=== PATIENT | female | born 1960 | race Caucasian/White ===

== ENCOUNTER 2024-04-14 17:24 | Emergency (ER) | payer OTHER ==
[2024-04-14] MEDS: Sodium Chloride 0.9% 1,000 ML IV SCH (20:16)
[2024-04-14] MEDS: Ondansetron 4 MG/2 ML SDV IVPUSH ONE (20:17)
[2024-04-14 20:23] LABS: HEMOGLOBIN 13.6 g/dL (11.2-15.5)
[2024-04-14 20:31] LABS: PLATELET COUNT,PLT 187 K/uL (130-375)
[2024-04-14 20:32] LABS: CALCIUM 9.3 mg/dL (8.5-10.1); CREATININE 0.9 mg/dL (0.6-1.0); EST CRCL DRUG DOSING (CG) 63.7 mL/min; POTASSIUM,K 4.1 mmol/L (3.6-5.2)
[2024-04-14 20:33] LABS: BAND ABSOLUTE MAN 0.21 K/uL; BAND PERCENT MAN 1 % (5-11); EOSINOPHILS ABSOLUTE MAN 0.21 K/uL (0.00-0.40); EOSINOPHILS PERCENT MAN 1 % (2-4); LYMPHOCYTES ABSOLUTE MAN 3.36 K/uL (0.8-3.3); LYMPHOCYTES PERCENT MAN 16 % (24-44); MONOCYTES ABSOLUTE MAN 0.42 K/uL (0.20-0.90); MONOCYTES PERCENT MAN 2 % (2-6); SEG NEUTROPHILS PERCENT MAN 80 % (36-66)
[2024-04-14 20:35] LABS: ANION GAP 16.1 mmol/L (5.0-14.0)
== END 2024-04-14 21:59 | disposition home or self-care (01) ==
LOC: JP.ED 17:24
DX: R11.2 Nausea with vomiting, unspecified (principal); E86.0 Dehydration; Z90.710 Acquired absence of both cervix and uterus; Z79.899 Other long term (current) drug therapy; Z88.5 Allergy status to narcotic agent
CPT/HCPCS: 36415; 80048; 85004; 85018; 85049; 96361; 96374; 99283; 99284; J2405; J7030